=== PATIENT | male | born 1960 | race Caucasian/White ===

== ENCOUNTER 2018-04-11 05:39 | Emergency (ER) | payer OTHER ==
[~2018-04-11] VITALS: Ht 177.8 cm; Wt 92.0 kg
[2018-04-11] MEDS ORDERED: ASPIRIN81 MG PO (05:59)
[2018-04-11] MEDS ORDERED: LIPITOR80 M1 PO (06:02)
[2018-04-11] MEDS ORDERED: CARVEDILOL6.25 MG PO (06:03)
[2018-04-11] MEDS ORDERED: LOSARTAN/HCT1 TA2 PO (06:04)
[2018-04-11 06:37] LABS: HEMATOCRIT 44.7 % (39.0-50.0); HEMOGLOBIN 15.6 g/dl (14.0-18.0); IMMATURE GRANULOCYTES 0.4 % (0.0-5.0); MEAN CELL VOLUME 92.9 fL CALC (80.0-100.0); MEAN CORPUSCULAR HGB 32.4 pG CALC (26.0-32.0); MEAN CORPUSCULAR HGB CONC 34.9 g/L CALC (32.0-36.0); NEUT# 5.58 thou/uL (1.82-7.42); RED BLOOD COUNT 4.81 mill/uL (4.70-6.10); RED CELL DISTRI WIDTH 12.7 % (11.5-15.5)
[2018-04-11 06:58] LABS: ALBUMIN 4.7 g/dL (3.2-5.0); ALKALINE PHOSPHATASE 106 u/l (38-126); AMYLASE 91 u/l (30-110); ANION GAP 16 (6-22 (CALC)); BILIRUBIN, TOTAL 1.1 mg/dL (0.0-1.4); BUN 17 mg/dL (9-20); BUN/CREATININE RATIO 17 (12-20 (CALC)); CARBON DIOXIDE 30 mmol/l (22-30); CHLORIDE 100 mmol/l (95-108); GFR > 60 ML/MIN (>=60 (CALC)); GFR FOR AFR.AMER. > 60 ML/MIN (>=60 (CALC)); LIPASE 261 u/l (23-300); POTASSIUM 3.6 mmol/l (3.5-5.1); SGOT/AST 55 u/l (17-59); SODIUM 143 mmol/l (137-146); TOTAL PROTEIN 7.7 g/dL (6.3-8.2)
[2018-04-11 06:59] LABS: ACT PARTIAL THROMBO TIME 28.2 SECONDS (20.0-32.5); PROTHROMBIN TIME 10.8 SECONDS (9.0-12.5)
[2018-04-11 07:10] LABS: MYOGLOBIN 56 ng/mL (0 - 121)
[2018-04-11 08:30] VITALS: BP 169/87
== END 2018-04-11 08:30 | disposition short-term general hospital (02) | DRG 282 ==
LOC: ED 05:39
PROVIDERS: Family Medicine
DX: I21.4 Non-ST elevation (NSTEMI) myocardial infarction (principal); R07.9 Chest pain, unspecified; R06.02 Shortness of breath; I10 Essential (primary) hypertension; I25.10 Atherosclerotic heart disease of native coronary artery without angina pectoris; Z95.5 Presence of coronary angioplasty implant and graft

== ENCOUNTER 2019-05-26 | Emergency (ER) | payer OTHER ==
[~2019-05-26] MED LIST: ASPIRIN81 MG PO; CARVEDILOL6.25 MG PO; LIPITOR80 M1 PO; LOSARTAN/HCT1 TA2 PO
[2019-05-26 10:11] LABS: HEMATOCRIT 43.4 % (39.0-50.0); HEMOGLOBIN 15.2 g/dl (14.0-18.0); IMMATURE GRANULOCYTES 0.4 % (0.0-5.0); MEAN CELL VOLUME 91.8 fL CALC (80.0-100.0); MEAN CORPUSCULAR HGB 32.1 pG CALC (26.0-32.0); NEUT# 7.27 thou/uL (1.82-7.42); RED BLOOD COUNT 4.73 mill/uL (4.70-6.10); RED CELL DISTRI WIDTH 12.7 % (11.5-15.5)
[2019-05-26 10:36] LABS: ANION GAP 12 (6-22 (CALC)); BUN 18 mg/dL (9-20); BUN/CREATININE RATIO 21 (12-20 (CALC)); CARBON DIOXIDE 31 mmol/l (22-30); CHLORIDE 102 mmol/l (95-108); CREATININE 0.9 mg/dL (0.7-1.3); GFR > 60 ML/MIN (>=60 (CALC)); GFR FOR AFR.AMER. > 60 ML/MIN (>=60 (CALC)); POTASSIUM 4.1 mmol/l (3.5-5.1); SODIUM 141 mmol/l (137-146)
== END 2019-05-26 11:28 | disposition home or self-care (01) | DRG 313 ==
PROVIDERS: Family Medicine
DX: R07.9 Chest pain, unspecified (principal); I10 Essential (primary) hypertension; I25.10 Atherosclerotic heart disease of native coronary artery without angina pectoris; Z95.5 Presence of coronary angioplasty implant and graft

== ENCOUNTER 2024-05-27 09:18 | Emergency (ER) | payer MEDICARE, OTHER ==
[~2024-05-27] VITALS: Ht 177.8 cm; Wt 88.0 kg
[2024-05-27 09:45] VITALS: BP 154/85
[2024-05-27] MEDS ORDERED: predniSONE 20 MG/TAB PO ONE (09:50)
[2024-05-27] MEDS ORDERED: ALBUTEROL SULFATE 2.5 MG VIAL IN ONE (09:50)
[2024-05-27 10:00] VITALS: BP 141/81
[2024-05-27 10:16] VITALS: BP 167/96
[2024-05-27 10:30] VITALS: BP 155/82
[2024-05-27] MEDS ORDERED: ZPAK PO (10:39)
[2024-05-27] MEDS ORDERED: TAM75CAP PO (10:39)
[2024-05-27 10:45] VITALS: BP 138/79
== END 2024-05-27 10:50 | disposition home or self-care (01) ==
LOC: ED 09:18
DX: J10.00 Influenza due to other identified influenza virus with unspecified type of pneumonia (principal)